=== PATIENT | female | born 2000 | race Asian ===

== ENCOUNTER 2023-12-10 00:19 | Emergency (ER) | payer OTHER ==
[~2023-12-10] VITALS: Ht 165.1 cm; Wt 49.9 kg
[2023-12-10 00:19] VITALS: BP 97/65; PULSE 110; RESP 14; TEMP 97.9; O2SAT 94
[2023-12-10] MEDS ORDERED: NACL 0.9% 1,000 ML IV ONE (00:45)
[2023-12-10] MEDS ORDERED: ONDANSETRON 4 MG/2 ML VIAL IVP ONE (00:45)
[2023-12-10 04:28] VITALS: BP 107/69; PULSE 80; RESP 17; O2SAT 100
== END 2023-12-10 04:28 | disposition home or self-care (01) ==
LOC: MED 00:19
DX: F10.129 Alcohol abuse with intoxication, unspecified (principal); Y90.9 Presence of alcohol in blood, level not specified
CPT/HCPCS: 96361; 96374; 99285; J2405; J7030